=== PATIENT | female | born 1985 | race American Indian/Alaskan Native ===

== ENCOUNTER 2016-04-25 23:28 | Outpatient (CLI) | payer MEDICAID ==
[2016-04-25 23:55] VITALS: BP 108/60
[2016-04-25] MEDS ORDERED: LACTATED RINGERS 1,000 ML IV ONE (23:55)
[2016-04-25] MEDS ORDERED: LACTATED RINGERS 1,000 ML ONE (23:56)
[2016-04-26 00:36] LABS: Bilirubin,Urine NEG (Negative); Blood,Urine NEG (Negative); Ketones,Urine NEG (Negative); Leukocyte Esterase,Urine NEG (Negative); Nitrite,Urine NEG (Negative); Protein,Urine <15 mg/dL mg/dL (Negative); Urobilinogen,Urine < 2.0 mg/dL (<2.0)
== END 2016-04-26 01:28 | disposition home or self-care (01) ==
LOC: TRG 23:28
PROVIDERS: ATTEND Obstetrics & Gynecology
DX: O62.9 Abnormality of forces of labor, unspecified (principal); Z3A.27 27 weeks gestation of pregnancy
CPT/HCPCS: 81001; 96360; J7120

== ENCOUNTER 2016-05-06 12:17 | Outpatient (CLI) | payer MEDICAID ==
[2016-05-06 12:36] LABS: Hematocrit 38.5 % (30.3-42.9); Hemoglobin 12.9 gm/dl (10.1-14.3); Mean Corpuscular HGB Conc 34 % (30-34); Mean Corpuscular Hemoglobin 30 pg (28-32); Mean Corpuscular Volume 90 fl (79-97); Platelet Count 171 K/mm3 (140-440); Red Blood Count 4.27 M/mm3 (3.65-5.03); Red Cell Distribution Width 13.7 % (13.2-15.2); White Blood Count 13.5 K/mm3 (4.5-11.0)
== END 2016-05-06 12:18 | disposition home or self-care (01) ==
LOC: LAB 12:17
PROVIDERS: ATTEND Surgery
DX: K64.9 Unspecified hemorrhoids (principal); D72.829 Elevated white blood cell count, unspecified
CPT/HCPCS: 36415; 85027